=== PATIENT | female | born 1995 | race Caucasian/White ===

== ENCOUNTER 2019-11-18 19:02 | Emergency (ER) | payer BC ==
[~2019-11-18] VITALS: Ht 165.1 cm; Wt 59.0 kg
[2019-11-18 19:25] VITALS: Ht 165.1 cm; Wt 59.0 kg
[2019-11-18 20:53] VITALS: BP 108/70
== END 2019-11-18 20:53 | disposition home or self-care (01) ==
LOC: ED 19:02
DX: S62.91XA Unspecified fracture of right hand, initial encounter for closed fracture (principal); W22.8XXA Striking against or struck by other objects, initial encounter; Y93.89 Activity, other specified; Y92.89 Other specified places as the place of occurrence of the external cause; Y99.8 Other external cause status